=== PATIENT | male | born 1985 | race Two or more races ===

== ENCOUNTER → 2020-02-10 | Day surgery (SDC) | payer BC ==
--- NOTE | 2020-02-04 14:38 | Diagnostic Imaging Report ---
EXAMINATION: CHEST 2 VIEWS INDICATION: Pre-operative COMPARISON: None FINDINGS: LINES/TUBES:None LUNGS:The lungs are well-inflated. No focal consolidation or pulmonary edema. PLEURA:No pleural effusion or pneumothorax. MEDIASTINUM:The cardiomediastinal silhouette appears normal in size and shape. BONES/SOFT TISSUES:No acute osseous injury. ABDOMEN:No free air under the diaphragm. IMPRESSION: No focal pneumonia or pulmonary edema. Signed by: Lee Gibson MD on 02/04/2020 2:35 PM
[2020-02-04 14:40] LABS: BASOPHILS # (AUTO) 0.1 (0.0-0.1); BASOPHILS % 1.2 % (0.0-1.0); EOSINOPHILS # (AUTO) 0.5 (0.0-0.4); EOSINOPHILS % 7.3 % (0.0-6.0); HEMATOCRIT 42.7 % (38.2-49.6); HEMOGLOBIN 14.5 g/dL (14.0-18.0); LYMPHOCYTES # (AUTO) 1.6 (1.0-3.2); LYMPHOCYTES % 24.2 % (18.0-39.1); MEAN CORPUSCULAR HEMOGLOBIN 29.4 pg (28-32); MEAN CORPUSCULAR VOLUME 86.4 fL (81-99); MONOCYTES # (AUTO) 0.5 (0.2-0.8); NEUTROPHILS # (AUTO) 3.9 (2.1-6.9); NEUTROPHILS % 59.4 % (38.7-80.0); PLATELET COUNT 197 x10e3/uL (140-360); RED BLOOD COUNT 4.94 x10e6/uL (4.3-5.7); RED CELL DISTRIBUTION WIDTH 12.3 % (11.7-14.4)
[2020-02-04 14:53] LABS: INR 0.94
[2020-02-04 14:58] LABS: ANION GAP 13.4 mmol/L (8-16); BLOOD UREA NITROGEN 9 mg/dL (7-26); BUN/CREATININE RATIO 10 (6-25); CALCIUM 9.6 mg/dL (8.4-10.2); CARBON DIOXIDE 28 mmol/L (22-29); CHLORIDE 105 mmol/L (98-107); CREATININE, SERUM 0.91 mg/dL (0.72-1.25); EST GLOMERULAR FILTRATION RATE > 60 ML/MIN (60-); GLUCOSE 91 mg/dL (74-118); POTASSIUM 4.4 mmol/L (3.5-5.1); SODIUM 142 mmol/L (136-145)
[~2020-02-10] MED LIST: ACETAMINOPHEN 1000 MG/100 ML 100 ML IV ONE; ACETAMINOPHEN 1000 MG/100 ML IV ONE; BACITRACIN 50,000 UNIT VIAL ONE; BUPIVACAINE 0.25%/EPI 30ML SDV INJ ONE; CEFAZOLIN SOD 1 GM/NS 50ML 100 ML IV ONE; DEXAMETHASONE SOD PHOS INJ 4 MG/ML VIAL ONE; HYDROCODONE/APAP 7.5MG-325MG 1 EA TAB ONE; IBUPROFEN 800MG/ 200ML 200 ML IV ONE; LIDOCAINE HCL (LTA) 4 ML SOLN ONE; LIDOCAINE HCL 2% LOCAL INJ 5 ML SDV VIAL INJ ONE; MEPERIDINE HCL INJ 25 MG/ML VIAL ONE; ONDANSETRON HCL INJ 2MG/ML 2ML 2 MG/ML VIAL ONE; PROPOFOL IV EMULSION 10 MG/ML 20 ML VIAL ONE; ROCURONIUM BROMIDE 10 MG/ML 5ML VIAL IV ONE; SEVOFLURANE INHAL SOLN 250 ML PEN BTL ONE; SUGAMMADEX SODIUM 200 MG/2 ML VIAL IV ONE; THROMBIN FOR SOLN 5,000 UNIT VIAL ONE
--- NOTE | 2020-02-10 10:44 | Operative Report ---
DATE OF PROCEDURE: 02/10/2020 SURGEON: Anand Garcia MD PREOPERATIVE DIAGNOSIS: Right L5-S1 disk herniation with radiculopathy, M51.16. POSTOPERATIVE DIAGNOSIS: Right L5-S1 disk herniation with radiculopathy, M51.16. PROCEDURES: Right L5-S1 laminotomy, medial facetectomy, and microsurgical diskectomy, 54223. ANESTHESIA: General. INDICATIONS: The patient is a 34-year-old man, who presents with a central and right paracentral L5-S1 disk herniation and was taken to surgery for L5-S1 diskectomy through a right-sided approach. DESCRIPTION OF PROCEDURE: After induction of general anesthesia, the patient was placed on the operating table in the prone position over a Markel frame. Lumbar region was prepped and draped in sterile fashion. A preoperative x-ray was obtained. A small midline incision was created. Lumbar fascia was opened in right of midline and subperiosteal dissection was carried out to expose the right side L5-S1 lamina and the medial aspect of the L5-S1 facet joint. A second x-ray confirmed correct localization. The operating microscope was brought in. A high-speed drill equipped with ambrocio bur was used to drill the inferior aspect of the lamina of L5 and the medial rim of the inferior articular process of L5. The ligamentum flavum was resected and the dural sac and the traversing S1 nerve roots were exposed. The nerve root was slightly retracted medially. The herniated disk material came into view. The epidural veins lateral to the nerve root were bipolar coagulated and divided with micro scissors. The posterior longitudinal ligament was incised with the tip of the #11 blade. A ball probe was used to retrieve the large extruded disk fragment, which was grasped with a micropituitary rongeur and carefully removed as a very large fragment of disk. The opening into the annulus of the disk was further enlarged with a #11 blade and the loose contents of the L5-S1 disk were evacuated with curettes and pituitary rongeurs. Excellent decompression was achieved. By the end of the procedure, a ball probe could be passed from the right to the left side in the ventral epidural space without encountering any resistance. Meticulous hemostasis was secured. The lumbar fascia was closed with 0 Vicryl sutures. The subcutaneous layer was closed with 2-0 Vicryl sutures. The skin was closed with 3-0 Monocryl sutures in subcuticular fashion. Steri-Strips and dressing were applied. The patient was awakened, extubated, and taken to postanesthesia care in stable condition. No intraoperative complications were encountered. Estimated blood loss was 10 mL. Anand Garcia MD PP/SHYLA /[id number]
--- NOTE | 2020-02-10 10:59 | Diagnostic Imaging Report ---
OR Fluoroscopy: IMPRESSION: Fluoroscopy service provided in the OR. Interpretation not requested. Signed by: Ramses Lai MD on 02/10/2020 10:56 AM
--- NOTE | 2020-02-10 11:00 | Diagnostic Imaging Report ---
OR Fluoroscopy: IMPRESSION: Fluoroscopy service provided in the OR. Interpretation not requested. Signed by: Ramses Lai MD on 02/10/2020 10:56 AM
[2020-02-10 13:15] VITALS: BP 133/90
== END | disposition home or self-care (01) ==
LOC: OR 07:48
PROVIDERS: ATTEND Neurological Surgery
DX: M51.16 Intervertebral disc disorders with radiculopathy, lumbar region (principal); M51.17 Intervertebral disc disorders with radiculopathy, lumbosacral region; Z01.810 Encounter for preprocedural cardiovascular examination; Z01.812 Encounter for preprocedural laboratory examination; Z01.818 Encounter for other preprocedural examination; Z11.59 Encounter for screening for other viral diseases
CPT/HCPCS: 36415; 63047; 71046; 72020; 80048; 85025; 85610; 85730; 86850 ×2; 86900 ×2; 88304; 93005; J0131; J0690; J1100; J2001; J2175; J2405; J2704; U0002